=== PATIENT | female | born 1985 | race Caucasian/White ===

== ENCOUNTER 2021-12-29 10:26 | Outpatient (CLI) | payer BC, SELFPAY ==
[2021-12-29 11:11] LABS: Hematocrit 35.9 % (37.0-47.0); Hemoglobin 11.6 g/dL (12.0-15.0)
== END 2021-12-29 10:27 | disposition home or self-care (01) ==
PROVIDERS: PCP Family Medicine; Visit Provider Obstetrics & Gynecology
DX: Z01.818 Encounter for other preprocedural examination (principal)
CPT/HCPCS: 36415; 85014; 85018

== ENCOUNTER 2022-01-01 01:29 | Day surgery (SDC) | payer BC, SELFPAY ==
[2021-12-28 12:40] VITALS: BMI 20.6
--- NOTE | 2021-12-28 12:49 | PC.NURSE ---
Report to the Outpatient Waiting Room, entrance under the green pavilion located off [facility], at time 1130 on date __01/01/22_. OR Time: _1330_. - You and your visitor will be asked a series of questions to screen for COVID 19 for your protection. - Only one visitor is allowed at this time. - The patient visitor is requested to leave or wait in car when not with patient. - A mask is required within the hospital. Patients may have clear liquids (water, carbonated beverages, clear teas, apple juice) until 3 hours prior to surgery with a maximum of 20 ounces. - No food from midnight until time of surgery - Infants may have breast milk until 4 hours before surgery, infant formula 6 hours prior to surgery. - Children will be allowed to drink immediately following surgery. If applicable, please bring a bottle or sippy cup to assist with drinking. Juice, water, soda, and popsicles are readily available. For infants on formula, please bring formula the day of surgery. Pacifiers are allowed. Take the following medications with a SIP of water the morning of surgery: _inhaler if needed_ Medications to discontinue per physician __vitamins 3 days prior__ Date to take last dose Please no make-up, nail telugu, hairspray, perfume, deodorant, or body powder the day of surgery. No jewelry (including any body piercings) or valuables the day of surgery, leave them at home. Please take a shower or bath the night before, or the morning of, surgery with an antibacterial soap. Wear comfortable, loose fitting clothing. Children are encouraged to wear pajamas. - Jewelry must be removed prior to entering the operating room. Rings and piercings that are not removed may be cut off. - The hospital will not accept responsibility for valuables. - Please leave all valuables, including medications, at home the day of surgery. If you are going home after surgery, a licensed grain combine driver must drive you home. - NO public transportation without another adult. - We recommend that an adult stay with you for 24 hours following discharge. - We also recommend that you do not drive, make important decision, drink alcoholic beverages, or take any drugs that were not prescribed by your health care provider for at least 24 hours after your discharge time. For Pediatric surgeries, we recommend two adults accompany the child home (only one inside the building at this time). Follow any additional instructions given to you from your surgeon. If you or anyone in your household have experienced Covid symptoms in the past week, please notify your surgeon or the nurse liaison at the phone number below for possible testing. Telephone instructions given to _patient_and asked if any additional questions and then verbalized understanding. Patient advised to call surgeon office or pre surgery nurse liaison [phone] if any additional questions.
--- NOTE | 2021-12-30 07:58 | PM.IMHP ---
H&P: HPI History of Present Illness Date/Time: 12/30/21 07:58 Chief Complaint: Excessive vaginal bleeding Narrative: Since 36-year-old 3 para 3 with a history of bleeding. She is is vasectomy for control. She is had heavy bleeding and underwent imaging which showed thickened endometrium. Risks and benefits of hysteroscopy and dilatation curettage reviewed in great detail. She received the ACOG handouts entitled hysteroscopy and dilatation and curettage respectively. She had all questions answered. She asked to proceed [facility] Family History Family History Mother Hypertension Family history of colonic diverticulitis Social History Social History Smoking status: Never smoker Second hand tobacco smoke exposure: No Alcohol intake: current Drinks per week: 1 Alcohol use details: glass of wine Substance use: never Substance use type: does not use Spiritual care concerns: No Meds Home Medications and Allergies Home Medications Medication Instructions Recorded Confirmed Type albuterol sulfate 90 mcg/actuation 1 - 2 inh inhalation PRN PRN 12/28/21 12/28/21 History aerosol inhaler Allergic Reaction amoxicillin 875 mg tablet 875 tablet PO 12/28/21 History cetirizine 10 mg capsule (Zyrtec) 10 mg PO DAILY allergey 12/28/21 12/28/21 History fluticasone propionate 50 1 - 2 ea intranasal DAILY PRN 12/28/21 12/28/21 History mcg/actuation nasal sinus issues spray,suspension Allergies Allergy/AdvReac Type Severity Reaction Status Date / Time house dust AdvReac Intermediate Cough Verified 12/28/21 12:45 Assessment and Plan Assessment and plan (1) Excessive bleeding: Code(s): R58 - Hemorrhage, not elsewhere classified Status: Acute Plan Hysteroscopy/dilatation and curettage
--- NOTE | 2021-12-31 12:31 | WPDANESEPPF ---
Anes - Initial Pre Proc Eval Procedure: Operation Date: 01/01/22 13:30 Proposed Procedures p Hysteroscopy Dilation and Curettage - Rashi Plascencia MD Date/Time: 12/31/21 12:31 Surgeon: Rashi Plascencia MD Pre Op Diagnosis: Heavy Bleeding, Pain Patient Data Age: 36 Gender: F Height: 1.68 m Weight: 58.06 kg Allergies Allergy/AdvReac Type Severity Reaction Status Date / Time house dust AdvReac Intermediate Cough Verified 01/01/22 11:41 Home Medications Medication Instructions Recorded Confirmed Type albuterol sulfate 90 mcg/actuation 1 - 2 inh inhalation PRN PRN 12/28/21 12/28/21 History aerosol inhaler Allergic Reaction amoxicillin 875 mg tablet 875 tablet PO BID 12/28/21 01/01/22 History cetirizine 10 mg capsule (Zyrtec) 10 mg PO DAILY allergey 12/28/21 12/28/21 History fluticasone propionate 50 1 - 2 ea intranasal DAILY PRN 12/28/21 01/01/22 History mcg/actuation nasal sinus issues spray,suspension hydrocodone 5 mg-acetaminophen 325 1 tablet PO Q4H PRN pain #20 tabs 01/01/22 Rx mg tablet Patient hx anesthesia problems: none Family hx anesthesia problems: none Results Review: All pre-operative results and documents have been reviewed as part of the pre-operative evaluation. [facility] Past Medical History Medical History (Updated 01/01/22 @ 07:18 by Rashi Plascencia MD) Excessive bleeding Family History Family History Mother Hypertension Family history of colonic diverticulitis Social History Social History Smoking status: Never smoker Second hand tobacco smoke exposure: No Alcohol intake: current Drinks per week: 1 Alcohol use details: glass of wine Substance use: never Substance use type: does not use Living arrangements: with family Spiritual care concerns: No Anes - Eval Final PreProcedure Day of Procedure 12/31/21 12:31 Patient weight: normal Heart: regular rate and rhythm Lungs: clear to auscultation and normal air movement Airway: Mallampati scale class II Neurological: alert and oriented Last oral intake: >/= 8 hours ASA classification: II Emergent: no Anesthetic plan: proceed Anesthesia type and monitoring: general GIVS and LMA Results Review: All pre-operative results and documents have been reviewed as part of the pre-operative evaluation. Informed Consent: The patient's anesthetic plan and its attendant risks and benefits were discussed with the patient/family/POA. Questions were solicited and answers provided to the satisfaction of the patient/family/POA.
--- NOTE | 2022-01-01 07:17 | WPDHPUPDATE1 ---
History and Physical Update Update Date/Time: 01/01/22 07:17 History and Physical has been reviewed, including an updated exam of the patient. There are NO changes in the patient's condition. Risks, benefits, and alternatives have been discussed and questions answered. Patient agrees to proceed with procedure.
[2022-01-01] MEDS: ACETAMINOPHEN 500 MG TABLET 1000 MG PO (11:43)
[2022-01-01 12:01] VITALS: BP 122/64; PULSE 73; RESP 16; TEMP 37.1; O2SAT 100
[2022-01-01] MEDS: LACTATED RINGERS 1,000 ML 30 ML IV CONT (12:21)
[2022-01-01] MEDS: LIDOCAINE HCL 1% PF 30 ML VIAL 10 ML INFILTRATE (12:55)
--- NOTE | 2022-01-01 13:10 | W.PM.PROC2 ---
Procedure Note - Detailed Date of Procedure 01/01/22 Pre-op Diagnosis Heavy Bleeding, Pain Post-op Diagnosis Other (Uterine polyps) Procedure Performed Hysteroscopy/polypectomy/dilatation curettage Surgeon Rashi Plascencia MD Anesthesia MAC and Local Indications 36-year-old female with excessive heavy bleeding refractory to medical therapy Findings 2 small uterine polyps at the fundus Description of Procedure The patient was prepped draped in the normal sterile fashion placed in the dorsal lithotomy position. Under excellent IV sedation weighted speculum placed in posterior fornix vagina. Anterior lip of the cervix grasped with a tenaculum 2.5cc of 1% xylocaine anesthesia placed at 2, 4, 8, 10:00 a.m. respectively of the cervix. Uterus sounded to 10cm. Serial dilatation with fragmented dilators performed followed by passage of the 5mm visualizing hysteroscope. Normal saline was used as visualizing medium. The H fallopian tube os could be seen there were 2 small polyps at the uterine fundus. These were grasped with the polyp forceps and removed piecemeal. The uterus was then scraped over the entire 360?. When a good grating sound was heard the instruments were removed. All sponge, needle, instrument counts were correct. There were no immediate complications. Estimated Blood Loss 5 Drains No Packing No Pathology Yes Complications No immediate complications Condition Stable Disposition PACU
[2022-01-01 13:15] VITALS: BP 115/69; PULSE 67; RESP 14; O2SAT 100
[2022-01-01 13:42] VITALS: BP 114/77; PULSE 59; RESP 16
[2022-01-01 14:08] VITALS: BP 120/69; PULSE 52; RESP 16
== END 2022-01-01 14:15 | disposition home or self-care (01) ==
PROVIDERS: PCP Family Medicine; Visit Provider Obstetrics & Gynecology
PROC: 0U5B8ZZ Destruction of Endometrium, Via Natural or Artificial Opening Endoscopic (ICD-10-PCS; CPT 58563; principal; 2022-01-01 13:30)
DX: N92.0 Excessive and frequent menstruation with regular cycle (principal); N84.0 Polyp of corpus uteri; Z79.51 Long term (current) use of inhaled steroids; R58 Hemorrhage, not elsewhere classified
CPT/HCPCS: 58558; 88305; A9270; J2250; J2704; J3010; J7030; J7120

== ENCOUNTER 2023-08-17 17:21 | Outpatient (CLI) | payer BC, SELFPAY ==
[2023-08-17 18:05] LABS: Hematocrit 37.6 % (37.0-47.0); Hemoglobin 11.7 g/dL (12.0-15.0)
== END 2023-08-17 17:22 | disposition home or self-care (01) ==
LOC: ANHLAB 17:25
PROVIDERS: PCP Family Medicine; Visit Provider Obstetrics & Gynecology
DX: R10.2 Pelvic and perineal pain (principal); Z01.818 Encounter for other preprocedural examination
CPT/HCPCS: 36415; 85014; 85018; 86850; 86900; 86901

== ENCOUNTER 2023-08-19 00:17 | Day surgery (SDC) | payer BC, SELFPAY ==
[2023-08-15 16:57] VITALS: BMI 21.6
--- NOTE | 2023-08-15 17:25 | PC.NURSE ---
Report to the Outpatient Waiting Room, entrance under the green pavilion located off [facility], at 0630 on 08-19-23. Planned Procedure Time: 0830. Time changes happen often and if your time is changed the preop area will call you the afternoon before. - You and your visitor will be asked to self-screen and do not enter if you have any COVID symptoms. - A mask is optional within the hospital at this time. Patients may have clear liquids (water, carbonated beverages, clear teas, apple juice) until 3 hours prior to surgery with a maximum of 20 ounces. 0530 - No food from midnight until time of surgery - Infants may have breast milk until 4 hours before surgery, formula 6 hours prior to surgery. - Children will be allowed to drink immediately following surgery. If applicable, please bring a bottle or sippy cup to assist with drinking. Juice, water, soda, and popsicles are readily available. For infants on formula, please bring formula the day of surgery. Pacifiers are allowed. Take the following medications with a SIP of water the morning of surgery: None; Bring inhalers DOS to hospital DO NOT STOP ANY OF YOUR OTHER PRESCRIPTION MEDICATIONS PRIOR TO SURGERY EXCEPT THE FOLLOWING Medications to discontinue per physician: vitamins and supplements Date to take last dose: 08-16-23 Please no make-up, nail georgian, hairspray, perfume, deodorant, or body powder the day of surgery. No jewelry (including any body piercings) or valuables the day of surgery, leave them at home. Please take a shower or bath the night before, or the morning of, surgery with an antibacterial soap. Wear comfortable, loose fitting clothing. Children are encouraged to wear pajamas. - Jewelry must be removed prior to entering the operating room. Rings and piercings that are not removed may be cut off. - The hospital will not accept responsibility for valuables. - Please leave all valuables, including medications, at home the day of surgery. If you are going home after surgery, a licensed milk wagon driver must drive you home. - NO public transportation without another adult if you receive anesthesia. - We recommend that an adult stay with you for 24 hours following discharge. - We also recommend that you do not drive, make important decision, drink alcoholic beverages, or take any drugs that were not prescribed by your health care provider for at least 24 hours after your discharge time. For Pediatric surgeries, we recommend two adults accompany the child home. Follow any additional instructions given to you from your surgeon. If you or anyone in your household have experienced Covid symptoms in the past week, please notify your surgeon or the nurse liaison at the phone number below for possible testing. Telephone instructions given to Sari Isaac and asked if any additional questions and then verbalized understanding. Patient advised to call surgeon office or pre surgery nurse liaison [phone] if any additional questions.
--- NOTE | 2023-08-16 13:00 | PM.IMHP ---
H&P: HPI History of Present Illness Date/Time: 08/16/23 13:00 Chief Complaint: Pelvic pain/irregular bleeding/right ovarian cyst Narrative: [age] group 3 para 3 admitted for laparoscopy hysteroscopy dilatation curettage secondary to pelvic pain irregular excessive bleeding 8 and suspected uterine polyp. Risks and benefits reviewed including exclusive, aspiration, bleeding transfusion, perforation injury to bowel, bladder, ureters, or other internal organs with the need for open laparotomy. She received the ACOG handout entitled laparoscopy/hysteroscopy/dilatation curettage respectively. She had all questions answered to her satisfaction. She asked to proceed [facility] Past Medical History Medical History Excessive bleeding Family History Family History Mother Hypertension Family history of colonic diverticulitis Social History Social History Smoking status: Never smoker Second hand tobacco smoke exposure: No Alcohol intake: current Drinks per week: 1 Alcohol use details: twice a month maybe Substance use: never Substance use type: does not use Living arrangements: with family Spiritual care concerns: No Meds Home Medications and Allergies Home Medications Medication Instructions Recorded Confirmed Type albuterol sulfate 90 mcg/actuation 1 - 2 inh inhalation PRN PRN 12/28/21 08/15/23 History aerosol inhaler Allergic Reaction cetirizine 10 mg capsule (Zyrtec) 10 mg PO DAILY 12/28/21 08/15/23 History lactobacillus combination no.8 3 See Rx Instructions .Route .COMPLEX 08/15/23 08/15/23 History billion cell capsule Allergies Allergy/AdvReac Type Severity Reaction Status Date / Time house dust AdvReac Intermediate Cough Verified 08/15/23 16:54 Exam Const: General: cooperative, healthy appearing and comfortable Nutritional Appearance: average body habitus Orientation/consciousness: oriented to person, oriented to place and oriented to time HENMT: Head: normal to inspection Resp: Effort & Inspection: normal respiratory effort Cardio: Rate: regular rate Rhythm: regular rhythm Heart sounds: S1 normal heart sound present and S2 normal heart sound present GI: Inspection: normal to inspection : External Female Exam: normal external appearance Speculum Exam - Vagina: normal appearance of the vagina Speculum Exam - Cervix: normal appearance of the cervix Bimanual exam- vagina & uterus: enlarged Bimanual Exam- Adnexa, other: tender bilaterally Assessment and Plan Assessment and plan (1) Pelvic pain: Code(s): R10.2 - Pelvic and perineal pain Status: Acute (2) Excessive bleeding: Code(s): R58 - Hemorrhage, not elsewhere classified Status: Acute Plan Laparoscopy/hysteroscopy/dilatation curettage/polypectomy
[2023-08-19] VITALS (7 sets, daily range): BP systolic 107–120; BP diastolic 65–89; PULSE 56–96; RESP 14–18; TEMP 36.2–36.5; O2SAT 99–100
--- NOTE | 2023-08-19 06:33 | WPDHPUPDATE1 ---
History and Physical Update Update Date/Time: 08/19/23 06:33 History and Physical has been reviewed, including an updated exam of the patient. There are NO changes in the patient's condition. Risks, benefits, and alternatives have been discussed and questions answered. Patient agrees to proceed with procedure.
[2023-08-19] MEDS: LACTATED RINGERS 1,000 ML 30 ML IV CONT ×2 (07:13→09:27)
[2023-08-19] MEDS: SCOPOLAMINE 1 MG PATCH 1 PATCH TRANSDERM (07:25)
[2023-08-19] MEDS: KETOROLAC 15 MG/ML VIAL (*BKC) IV PUSH (07:28)
[2023-08-19] MEDS: ACETAMINOPHEN 500 MG TABLET 1000 MG PO (07:28)
--- NOTE | 2023-08-19 07:42 | WPDANESEPPF ---
Anes - Initial Pre Proc Eval Procedure: Operation Date: 08/19/23 08:30 Proposed Procedures p Diagnostic Laparoscopy, Hysteroscopy with Dilation and Curretage, Polypectomy - Rashi Plascencia MD Date/Time: 08/19/23 07:42 Surgeon: Rashi Plascencia MD Pre Op Diagnosis: Irg Bleeding, Uterine Polyps, Pelvic Pain Patient Data Age: 38 Gender: F Height: 1.65 m Weight: 59.5 kg Last Vital Signs Temp 36.5 C 08/19/23 06:45 Pulse 77 08/19/23 06:45 Resp 18 08/19/23 06:45 BP 112/89 08/19/23 06:45 Pulse Ox 100 08/19/23 06:45 O2 Del Method Room Air 08/19/23 06:45 Allergies Allergy/AdvReac Type Severity Reaction Status Date / Time house dust AdvReac Intermediate Cough Verified 08/19/23 07:05 Home Medications Medication Instructions Recorded Confirmed Type albuterol sulfate 90 mcg/actuation 1 - 2 inh inhalation PRN PRN 12/28/21 08/19/23 History aerosol inhaler Allergic Reaction cetirizine 10 mg capsule (Zyrtec) 10 mg PO DAILY 12/28/21 08/19/23 History lactobacillus combination no.8 3 See Rx Instructions .Route .COMPLEX 08/15/23 08/19/23 History billion cell capsule hydrocodone 5 mg-acetaminophen 325 1 tablet PO Q4H PRN pain #20 tabs 08/19/23 Rx mg tablet Patient hx anesthesia problems: none Family hx anesthesia problems: none Results Review: All pre-operative results and documents have been reviewed as part of the pre-operative evaluation. [facility] Past Medical History Medical History (Updated 08/19/23 @ 07:42 by Rashi Cooper MD) Asthma Excessive bleeding Surgical History Surgical History (Updated 08/19/23 @ 07:42 by Rashi Cooper MD) History of hysteroscopy Family History Family History Mother Hypertension Family history of colonic diverticulitis Social History Social History Smoking status: Never smoker Second hand tobacco smoke exposure: No Alcohol intake: current Drinks per week: 1 Alcohol use details: twice a month maybe Substance use: never Substance use type: does not use Living arrangements: with family Spiritual care concerns: No Anes - Eval Final PreProcedure Day of Procedure 08/19/23 07:42 Patient weight: normal Heart: regular rate and rhythm Lungs: clear to auscultation Airway: Mallampati scale class II Neurological: alert and oriented Last oral intake: >/= 8 hours ASA classification: II Emergent: no Anesthetic plan: proceed Anesthesia type and monitoring: general ETT and standard monitoring Results Review: All pre-operative results and documents have been reviewed as part of the pre-operative evaluation. Informed Consent: The patient's anesthetic plan and its attendant risks and benefits were discussed with the patient/family/POA. Questions were solicited and answers provided to the satisfaction of the patient/family/POA.
--- NOTE | 2023-08-19 09:18 | P.OP_ITS ---
Procedure Note - Detailed Date of Procedure 08/19/23 Pre-op Diagnosis Irg Bleeding, Uterine Polyps, Pelvic Pain Post-op Diagnosis Other (Irregular bleeding/ uterine polyps/pelvic pain / endometriosis/right ovarian cyst) Procedure Performed laparoscopy with destruction endometriosis destruction right ovarian cyst hysteroscopy/ polypectomy/dilatation curettage Surgeon Rashi Plascencia MD Anesthesia General Indications 38-year-old 3 para 3 with pelvic pain and heavy bleeding Findings laparoscopy the uterus was noted be large and floppy looked like adenomyosis neck. There is a small area of endometriosis along the right uterosacral ligament. Small right ovarian cyst was seen. Normal-appearing appendix gallbladder and liver edge. On hysteroscopy multiple polyps were seen and these were removed without difficulty. Description of Procedure Patient was prepped draped in normal sterile fashion placed in the dorsal lithotomy position. Excellent trach anesthesia weighted speculum postop was placed posterior fornix vagina. Anterior lip of the cervix grasped with single- tooth tenaculum. Lynne's cannula inserted the cervix and attached to the single-tooth tenaculum to be used later for uterine manipulation. After emptying the bladder of clear urine the weighted speculum was removed the gloves were changed. An infraumbilical incision made the Veress needle passed in the abdomen. Abdomen filled with CO2 gas [id number]. The 5mm trocar advanced under direct visualization assuring no injury. The patient placed in Trendelenburg and a suprapubic incision made. The 5mm trocar advanced under direct visualization assuring no injury. About 15cc of serosanguineous fluid was seen in this was suction removed. A small right benign-appearing right ovarian cyst was seen and this was opened in linear fashion with the monopolar cautery. The small air powder burn endometriosis seen on the right uterosacral and this was destroyed without difficulty. The remainder of the pelvis appeared within normal limits and photo documentation was undertaken. The the gas removed from the abdomen. The sites removed and the incisions closed with 4-0 Monocryl and glue. Attention was then turned to the hysteroscopy. Uterus sounded to 11cm. Serial dilatation with fragmented dilators performed followed by passage of the 5mm visualizing hysteroscope using normal saline as visualizing medium. Multiple polyps were seen and using the rotating instrument these were removed in total. Uterus was then scraped over the entire 360? and the instruments removed. Patient was awakened went to recovery in satisfactory condition. All sponge, needle, instrument counts were correct. There were no immediate complications Estimated Blood Loss 5 Drains No Packing No Pathology Yes Complications No immediate complications Condition Stable Disposition PACU
== END 2023-08-19 11:15 | disposition home or self-care (01) ==
PROVIDERS: PCP Family Medicine; Visit Provider Obstetrics & Gynecology
PROC: 0UDB8ZZ Extraction of Endometrium, Via Natural or Artificial Opening Endoscopic (ICD-10-PCS; CPT 58558; principal; 2023-08-19 08:30)
DX: N80.3C1 Endometriosis of the right uterosacral ligament, unspecified depth (principal); N83.201 Unspecified ovarian cyst, right side; N84.0 Polyp of corpus uteri; N93.9 Abnormal uterine and vaginal bleeding, unspecified; R10.2 Pelvic and perineal pain; J45.909 Unspecified asthma, uncomplicated; Z79.51 Long term (current) use of inhaled steroids
CPT/HCPCS: 58558; 58662; 88305; A9270; J1100; J1200; J1885; J2250; J2405; J2704; J3010; J7030; J7120

== ENCOUNTER 2024-02-16 02:10 | Day surgery (SDC) | payer OTHER, SELFPAY ==
[2024-02-13 17:27] VITALS: BMI 22.4
--- NOTE | 2024-02-13 17:47 | PC.NURSE ---
Report to the Outpatient Waiting Room, entrance under the green pavilion located off [facility], at time _0600 on date _02/16/24 . Planned Procedure Time: _729 . Time changes happen often and if your time is changed the preop area will call you the afternoon before. - You and your visitor will be asked to self-screen and do not enter if you have any COVID symptoms. - A mask is optional within the hospital at this time. Patients may have clear liquids (water, carbonated beverages, clear teas, apple juice) until 3 hours prior to surgery with a maximum of 20 ounces. - No food from midnight until time of surgery - Infants may have breast milk until 4 hours before surgery, infant formula 6 hours prior to surgery. - Children will be allowed to drink immediately following surgery. If applicable, please bring a bottle or sippy cup to assist with drinking. Juice, water, soda, and popsicles are readily available. For infants on formula, please bring formula the day of surgery. Pacifiers are allowed. Take the following medications with a SIP of water the morning of surgery: __Albuterol INH, Wixela INH DO NOT STOP ANY OF YOUR OTHER PRESCRIPTION MEDICATIONS PRIOR TO SURGERY ?EXCEPT THE FOLLOWING Medications to discontinue per physician ___N/A Date to take last dose___N/A Please no make-up, nail anguillan, hairspray, perfume, deodorant, or body powder the day of surgery. No jewelry (including any body piercings) or valuables the day of surgery, leave them at home. Please take a shower or bath the night before, or the morning of, surgery with an antibacterial soap. Wear comfortable, loose fitting clothing. Children are encouraged to wear pajamas. - Jewelry must be removed prior to entering the operating room. Rings and piercings that are not removed may be cut off. - The hospital will not accept responsibility for valuables. - Please leave all valuables, including medications, at home the day of surgery. If you are going home after surgery, a licensed sprinkling truck driver must drive you home. - NO public transportation without another adult if you receive anesthesia. - We recommend that an adult stay with you for 24 hours following discharge. - We also recommend that you do not drive, make important decision, drink alcoholic beverages, or take any drugs that were not prescribed by your health care provider for at least 24 hours after your discharge time. For Pediatric surgeries, we recommend two adults accompany the child home. Follow any additional instructions given to you from your surgeon. If you or anyone in your household have experienced Covid symptoms in the past week, please notify your surgeon or the nurse liaison at the phone number below for possible testing. Telephone instructions given to _Sari and asked if any additional questions and then verbalized understanding. Patient advised to call surgeon office or pre surgery nurse liaison [phone] if any additional questions.
[2024-02-16] VITALS (11 sets, daily range): BP systolic 101–121; BP diastolic 61–76; PULSE 58–85; RESP 10–20; TEMP 36.2–36.3; O2SAT 97–100
--- NOTE | 2024-02-16 06:29 | WPDHPUPDATE1 ---
History and Physical Update Update Date/Time: 02/16/24 06:29 History and Physical has been reviewed, including an updated exam of the patient. There are NO changes in the patient's condition. Risks, benefits, and alternatives have been discussed and questions answered. Patient agrees to proceed with procedure.
--- NOTE | 2024-02-16 06:29 | W.PM.PROC2 ---
Procedure Note - Detailed Date of Procedure 02/16/24 Pre-op Diagnosis micromastia Post-op Diagnosis Same Procedure Performed Bilateral augmentation mammaplasty Surgeon Howard Ku MD Anesthesia General Findings Bilateral Franc Colon SoftTouch 375 cc Right - REF# [id number] SN [id number] Left - REF# [id number] SN [id number] Description of Procedure She is here today for bilateral breast augmentation. Previously and again today the risks, benefits, alternatives were discussed in extensive detail. I wanted her to be very realistic about the risks involved as well as expectations. We discussed aftercare and what to monitor for. Made sure answered all of her questions to her satisfaction today and consent was obtained. Marked in the preoperative holding area with their verification. The patient was taken to the operating room placed supine on the operating table. Anesthesia was provided by anesthesiology. A surgical time-out was taken. We cleansed the skin and 1% lidocaine and 0.25% Marcaine with epinephrine was used anesthetize as a field block. She was prepped and draped in a standard sterile fashion. Tegaderm nipple Gomez were placed. A 15 blade used to make an incision along the inframammary fold. Dissection was continued at 45 degree angle until the chest wall as identified. I incised the pectoralis major along its inferior border and completely released the inferior border leaving the medial border intact. I created a subpectoral pocket in the appropriate dimensions based on our preoperative planning for the implant. I then copiously irrigated with saline solution and verified a strict hemostasis. Next the use a triple antibiotic and Betadine containing solution to irrigate the pocket. I washed my gloves with the triple antibiotic and Betadine solution. We washed the implant immediately upon opening it with this solution and only opened it when we needed it. I used implant funnel and no-touch technique. The implant was introduced into the pocket using the funnel. Having verified positioning of the implant this was closed using 2-0 PDS followed by 3-0 Monocryl in a running subcuticular 4-0 Monocryl followed by tissue glue. Fluffs and surgical bra were placed. Patient was awoke and taken to PACU without difficulty. All instrument sponge counts were correct at the end of the case. Estimated Blood Loss 20 Drains No Packing No Pathology None sent Complications No immediate complications Condition Stable Disposition PACU
[2024-02-16] MEDS: LACTATED RINGERS 1,000 ML 30 ML IV CONT ×2 (06:53→08:39)
[2024-02-16 06:56] LABS: BEDSIDEPREGUCG Negative
--- NOTE | 2024-02-16 07:16 | P.PNAN_ITS ---
Anes - Initial Pre Proc Eval Procedure: Operation Date: 02/16/24 07:30 Proposed Procedures p Bilateral Breast Augmentation - Howard Ku MD Date/Time: 02/16/24 07:16 Surgeon: Howard Ku MD Pre Op Diagnosis: micromastia Patient Data Age: 38 Gender: F Height: 1.65 m Weight: 58.05 kg Last Vital Signs Temp 97.4 F L 02/16/24 06:49 Pulse 82 02/16/24 06:49 BP 106/66 02/16/24 06:49 Pulse Ox 100 02/16/24 06:49 O2 Del Method Room Air 02/16/24 06:49 Allergies Allergy/AdvReac Type Severity Reaction Status Date / Time house dust AdvReac Intermediate Cough Verified 02/13/24 17:20 Home Medications Medication Instructions Recorded Confirmed Type albuterol sulfate 90 mcg/actuation 1 - 2 inh inhalation PRN PRN 12/28/21 02/13/24 History aerosol inhaler Shortness Of Breath cetirizine 10 mg capsule (Zyrtec) 10 mg PO DAILY 12/28/21 02/13/24 History lactobacillus combination no.8 3 See Rx Instructions .Route .COMPLEX 08/15/23 02/13/24 History billion cell capsule fluticasone 250 mcg-salmeterol 50 1 inh inhalation BID 02/13/24 02/13/24 History mcg/dose blistr powdr for inhalation (Wixela Inhub) Laboratory Tests 02/16/24 06:49 POC Urine HCG, Qual Negative U Test Com None POC Ur Preg QC Yes Patient hx anesthesia problems: none Family hx anesthesia problems: none Results Review: All pre-operative results and documents have been reviewed as part of the pre- operative evaluation. [facility] Past Medical History Medical History (Updated 08/19/23 @ 07:42 by Rashi Cooper MD) Asthma Excessive bleeding Surgical History Surgical History (Updated 08/19/23 @ 07:42 by Rashi Cooper MD) History of hysteroscopy Family History Family History Mother Hypertension Family history of colonic diverticulitis Social History Social History Smoking status: Never smoker Second hand tobacco smoke exposure: No Alcohol intake: never Drinks per week: 1 Alcohol use details: twice a month maybe Substance use: never Substance use type: does not use Living arrangements: with family Spiritual care concerns: No Anes - Eval Final PreProcedure Day of Procedure 02/16/24 07:16 Patient weight: normal Heart: regular rate and rhythm Lungs: clear to auscultation Airway: Mallampati scale class II Neurological: alert and oriented Last oral intake: >/= 8 hours ASA classification: II Emergent: no Anesthetic plan: proceed Anesthesia type and monitoring: general LMA and standard monitoring Results Review: All pre-operative results and documents have been reviewed as part of the pre- operative evaluation. Informed Consent: The patient's anesthetic plan and its attendant risks and benefits were discussed with the patient/family/POA. Questions were solicited and answers provided to the satisfaction of the patient/family/POA.
[2024-02-16] MEDS: BUPivacaine HCL 0.25% PF 30 ML VIAL INFILTRATE (07:32)
[2024-02-16] MEDS: ceFAZolin 2 GM/D5W 50 ML 2 GM/50 ML BAG IVPB (07:32)
[2024-02-16] MEDS: LIDO 1%/EPINEPHRINE 1:100,000 50 ML VIAL 30 ML INFILTRATE (07:32)
[2024-02-16] MEDS: NACL 0.9% IRRIG POUR BOTTLE 900 ML, GENTAMICIN SULFATE INJ 160 MG, ceFAZolin 2 GM, POVI... IRRIGATION (07:32)
[2024-02-16] MEDS: TRANEXAMIC ACID 1,000MG/ISO100 1,000 MG/100 ML BAG 200 MG IVPB (07:45)
[2024-02-16] MEDS: fentaNYL CITRATE INJ (*CRX) 100 MCG/2 ML VIAL 25 MCG IV PUSH ×2 (08:58→09:01)
[2024-02-16] MEDS: ONDANSETRON INJ 4 MG/2 ML VIAL IV PUSH (09:58)
[2024-02-16] MEDS: oxyCODONE HCL (*CRX) 5 MG TAB IR PO (10:28)
== END 2024-02-16 11:15 | disposition home or self-care (01) ==
PROVIDERS: PCP Family Medicine; Visit Provider Surgery Plastic and Reconstructive Surgery
PROC: (CPT 19325; principal; 2024-02-16 07:30)
DX: Z41.1 Encounter for cosmetic surgery (principal); N64.82 Hypoplasia of breast; J45.909 Unspecified asthma, uncomplicated; Z79.51 Long term (current) use of inhaled steroids; Z98.890 Other specified postprocedural states
CPT/HCPCS: 19325; A9270; J0690; J1100; J1580; J2250; J2405; J2704; J3010; J7120